=== PATIENT | female | born 1960 | race Caucasian/White ===

== ENCOUNTER → 2016-05-21 | Outpatient (CLI) | payer BC | END | disposition home or self-care (01) | LOC: RAD.S 05-19 10:30 | DX: R92.0 Mammographic microcalcification found on diagnostic imaging of breast (principal); N63 Unspecified lump in breast ==

== ENCOUNTER → 2016-11-09 | Outpatient (CLI) | payer BC | END | disposition home or self-care (01) | LOC: RAD.S 09:42 | DX: R92.0 Mammographic microcalcification found on diagnostic imaging of breast (principal) ==